=== PATIENT | male | born 1980 ===

== ENCOUNTER 2016-07-08 23:39 | Emergency (ER) | payer MEDICAID, OTHER ==
[2016-07-09] MEDS ORDERED: Sodium Chloride 0.9% 10 ML Syringe FLUSH PRN (00:16)
--- NOTE | 2016-07-09 00:28 | EDM.PDOC ---
ED HPI GENERAL MEDICAL PROBLEM - General Chief Complaint: Behavioral/Psych Stated Complaint: Agitation, N/V, side effects from smoking weed Time Seen by Provider: 07/08/16 23:40 Source of Information: Reports: Patient, Family, RN, RN Notes Reviewed History Limitations: Reports: No Limitations - History of Present Illness INITIAL COMMENTS - FREE TEXT/NARRATIVE: Patient presents to the emergency room at [facility] with concerns of contaminated marijuana. The patient states that earlier this evening he was at [employer] in [place] picking up supplies for work. The patient states that he bought a "bag of bleed from a [place]ese." The patient states when he got home this evening, he did smoke marijuana and also drink some alcohol. The patient states after smoking the marijuana she started having uncontrolled shaking, anxiety, hyperactivity, and paranoia. The patient is here to be evaluated for contaminated or "laced" marijuana. The patient states that "I normally do not smoked marijuana." The patient also states "I never drink alcohol." Onset Date: 07/08/16 Onset Time: 22:30 ED ROS GENERAL - Review of Systems Review Of Systems: See Below Constitutional: Reports: Diaphoresis. Denies: Fever, Chills, Weakness Respiratory: Denies: Shortness of Breath, Cough Cardiovascular: Denies: Chest Pain, Palpitations GI/Abdominal: Denies: Abdominal Pain, Diarrhea, Nausea, Vomiting Skin: Reports: Diaphoresis Neurological: Reports: Tremors. Denies: Dizziness, Headache, Numbness, Paresthesia, Tingling Psychiatric: Reports: Agitation, Anxiety ED EXAM, BEHAVIORAL HEALTH - Physical Exam Exam: See Below Exam Limited By: No Limitations General Appearance: Alert, Anxious, Thin. No: No Apparent Distress Eye Exam: Bilateral Eye: EOMI, Normal Inspection, PERRL Respiratory/Chest: No Respiratory Distress, Lungs Clear, Normal Breath Sounds Cardiovascular: Normal Peripheral Pulses, No Murmur, Tachycardia GI/Abdominal: Normal Bowel Sounds, Soft, Non-Tender Neurological: Alert, Oriented x 3 Psychiatric: Alert, Restless, Agitated, Phobic Skin Exam: Warm, Dry, Intact, Normal color, No rash EKG INTERPRETATION EKG Date: 07/08/16 Time: 23:57 Rhythm: NSR Rate (beats/min): 93 [place]: LAD-left axis deviation P-wave: present QRS: RBBB ST-T: normal QT: normal ME/PQ Interval: 0.15 Comparison: NA - no prior EKG EKG Interpretation Comments: Sinus Rhythm Marked Left Monroe deviation (QRS Monroe < -30) Incomplete RBBB (90+ms QRS duration, terminal R in V1/V2, 40+ ms S in I/aVL/V4/ V5/V6) Moderate ST depression (0.05+ mV ST depression) COURSE, BEHAVIORAL HEALTH COMP - Course Orders, Labs, Meds: Active Orders 24 hr Category Date Time Status EKG 12 Lead [EKG Documentation Completion] [RC] STAT Care 07/09/16 00:15 Active CARBOXY-THC BY GC/MS Stat Lab 07/09/16 00:20 Received Sodium Chloride 0.9% [Normal Saline] 1,000 ml Med 07/09/16 00:30 Active IV ASDIRECTED Sodium Chloride 0.9% [Saline Flush] Med 07/09/16 00:16 Active 10 ml FLUSH ASDIRECTED PRN Peripheral IV Insertion Adult [OM.PC] Routine Oth 07/09/16 00:16 Ordered Medication Orders Sodium Chloride (Normal Saline) 1,000 mls @ 999 mls/hr IV ASDIRECTED ARTEM Sodium Chloride (Saline Flush) 10 ml FLUSH ASDIRECTED PRN PRN Reason: Keep Vein Open Laboratory Tests 07/09/16 07/09/16 07/09/16 Range/Units 00:20 00:20 00:24 WBC 4.3 (4.0-10.0) x10^3/uL RBC 3.86 L (4.5-6.0) x10^6/uL Hgb 10.7 L (14.0-18.0) g/dL Hct 31.8 L (40.0-52.0) % MCV 82.4 (78.0-93.0) fL MCH 27.7 (26.0-32.0) pg MCHC 33.6 (32.0-36.0) g/dL RDW Coeff of Shaan 12.2 (10.0-15.0) % Plt Count 246 (130-400) x10^3/uL Neut % (Auto) 59.0 (50.0-80.0) % Lymph % (Auto) 27.8 (25.0-50.0) % [place] % (Auto) 11.8 H (2.0-11.0) % Eos % (Auto) 0.9 (0.0-4.0) % Baso % (Auto) 0.5 (0.2-1.2) % Sodium (136-145) mmol/L Potassium (3.5-5.1) mmol/L Chloride (98-107) mmol/L Carbon Dioxide (21-32) mmol/L BUN (7-18) mg/dL Creatinine (0.70-1.30) mg/dL Est Cr Clr Drug Dosing Estimated GFR (MDRD) Glucose (74-106) mg/dL Calcium (8.5-10.1) mg/dL Urine Color Dark yellow H (YELLOW) Urine Appearance Slightly cloudy H (CLEAR) Urine pH 6.0 (5.0-8.0) Ur Specific [place] >=1.030 Urine Protein 100 H (NEGATIVE) mg/dL Urine Glucose (UA) Negative (NEGATIVE) mg/dL Urine Ketones 15 H (NEGATIVE) mg/dL Urine Occult Blood Negative (NEGATIVE) Urine Nitrite Negative (NEGATIVE) Urine Bilirubin Small H (NEGATIVE) Urine Urobilinogen 1.0 (0.2) EU/dL Ur Leukocyte Esterase Negative (NEGATIVE) Urine RBC 0-5 (NOT SEEN) /HPF Urine WBC 0-5 (NOT SEEN) /HPF Ur Squamous Epith Cells Rare (NEGATIVE) /HPF Urine Bacteria Not seen (NEGATIVE) /HPF Hyaline Casts Rare H (NEGATIVE) /HPF Granular Casts Few H (NEGATIVE) /HPF Urine Mucus Many H (NEGATIVE) /LPF Urine Opiates Screen Negative (NEAGTIVE) Ur Buprenorphine Scrn Negative (NEGATIVE) Ur Oxycodone Screen Negative (NEGATIVE) Urine Methadone Screen Negative (NEGATIVE) Ur Barbiturates Screen Negative (NEGATIVE) Ur Tricyclics Screen Negative (NEGATIVE) Ur Amphetamine Screen Negative (NEGATIVE) U Methamphetamines Scrn Negative (NEGATIVE) Urine MDMA Screen Negative (NEGATIVE) U Benzodiazepines Scrn Negative (NEGATIVE) U Cocaine Metab Screen Negative (NEGATIVE) U Marijuana (THC) Screen Positive H (NEGATIVE) Ethyl Alcohol (0-3) mg/dL 07/09/17 Range/Units 00:24 WBC (4.0-10.0) x10^3/uL RBC (4.5-6.0) x10^6/uL Hgb (14.0-18.0) g/dL Hct (40.0-52.0) % MCV (78.0-93.0) fL MCH (26.0-32.0) pg MCHC (32.0-36.0) g/dL RDW Coeff of Shaan (10.0-15.0) % Plt Count (130-400) x10^3/uL Neut % (Auto) (50.0-80.0) % Lymph % (Auto) (25.0-50.0) % [place] % (Auto) (2.0-11.0) % Eos % (Auto) (0.0-4.0) % Baso % (Auto) (0.2-1.2) % Sodium 144 (136-145) mmol/L Potassium 3.3 L (3.5-5.1) mmol/L Chloride 109 H (98-107) mmol/L Carbon Dioxide 27 (21-32) mmol/L BUN 13 (7-18) mg/dL Creatinine 1.1 (0.70-1.30) mg/dL Est Cr Clr Drug Dosing TNP Estimated GFR (MDRD) > 60 Glucose 86 (74-106) mg/dL Calcium 8.1 L (8.5-10.1) mg/dL Urine Color (YELLOW) Urine Appearance (CLEAR) Urine pH (5.0-8.0) Ur Specific [place] Urine Protein (NEGATIVE) mg/dL Urine Glucose (UA) (NEGATIVE) mg/dL Urine Ketones (NEGATIVE) mg/dL Urine Occult Blood (NEGATIVE) Urine Nitrite (NEGATIVE) Urine Bilirubin (NEGATIVE) Urine Urobilinogen (0.2) EU/dL Ur Leukocyte Esterase (NEGATIVE) Urine RBC (NOT SEEN) /HPF Urine WBC (NOT SEEN) /HPF Ur Squamous Epith Cells (NEGATIVE) /HPF Urine Bacteria (NEGATIVE) /HPF Hyaline Casts (NEGATIVE) /HPF Granular Casts (NEGATIVE) /HPF Urine Mucus (NEGATIVE) /LPF Urine Opiates Screen (NEAGTIVE) Ur Buprenorphine Scrn (NEGATIVE) Ur Oxycodone Screen (NEGATIVE) Urine Methadone Screen (NEGATIVE) Ur Barbiturates Screen (NEGATIVE) Ur Tricyclics Screen (NEGATIVE) Ur Amphetamine Screen (NEGATIVE) U Methamphetamines Scrn (NEGATIVE) Urine MDMA Screen (NEGATIVE) U Benzodiazepines Scrn (NEGATIVE) U Cocaine Metab Screen (NEGATIVE) U Marijuana (THC) Screen (NEGATIVE) Ethyl Alcohol 21 H (0-3) mg/dL Medications Generic Name Dose Route Start Last Admin Trade Name Frebrenna PRN Reason Stop Dose Admin Sodium Chloride 1,000 mls @ 999 mls/hr 07/09/16 00:30 Normal Saline IV ASDIRECTED ARTEM Sodium Chloride 10 ml 07/09/16 00:16 Saline Flush FLUSH ASDIRECTED PRN Keep Vein Open Discontinued Medications Generic Name Dose Route Start Last Admin Trade Name Wen PRN Reason Stop Dose Admin Chlorpromazine HCl 25 mg/ 51 mls @ 100 mls/hr 07/09/16 00:28 Sodium Chloride IV 07/09/16 00:58 ONETIME ONE Departure - Departure Time of Disposition: 01:13 Disposition: Home, Self-Care 01 Condition: good Clinical Impression: Marijuana use, Alcohol use, Anxiety - Discharge Information Forms: ED Department Discharge Additional Instructions: 1. Stay well hydrated and rest 2. Please avoid any illegal drug use and alcohol use 3. Avoid any cigarette smoking 4. Your urine test positive for Marijuana 5. Blood test positive for alcohol 6. See your Primary as symptoms warrant - Problem List Review Problem List Initiated/Reviewed/Updated: Yes - My Orders Last 24 Hours: My Active Orders 07/09/16 00:15 EKG 12 Lead [EKG Documentation Completion] [RC] STAT 07/09/16 00:16 Sodium Chloride 0.9% [Saline Flush] 10 ml FLUSH ASDIRECTED PRN Peripheral IV Insertion Adult [OM.PC] Routine 07/09/16 00:20 CARBOXY-THC BY GC/MS Stat 07/09/16 00:30 Sodium Chloride 0.9% [Normal Saline] 1,000 ml IV ASDIRECTED - Assessment/Plan Last 24 Hours: My Active Orders 07/09/16 00:15 EKG 12 Lead [EKG Documentation Completion] [RC] STAT 07/09/16 00:16 Sodium Chloride 0.9% [Saline Flush] 10 ml FLUSH ASDIRECTED PRN Peripheral IV Insertion Adult [OM.PC] Routine 07/09/16 00:20 CARBOXY-THC BY GC/MS Stat 07/09/16 00:30 Sodium Chloride 0.9% [Normal Saline] 1,000 ml IV ASDIRECTED
[2016-07-09] MEDS ORDERED: Sodium Chloride 0.9% 1,000 ML IV SCH ×2 (00:30→00:50)
[2016-07-09 00:46] LABS: CHLORIDE,CL 109 mmol/L (98-107); SODIUM,NA 144 mmol/L (136-145)
[2016-07-09 02:17] VITALS: BP 138/73
== END 2016-07-09 04:30 | disposition home or self-care (01) ==
LOC: VM.ED 23:39
DX: F41.9 Anxiety disorder, unspecified (principal); F15.90 Other stimulant use, unspecified, uncomplicated; Z72.89 Other problems related to lifestyle
CPT/HCPCS: 36415; 80048; 80305; 80349; 81001; 85025; 93005; 96361; 96365; 99285; G0480; J3230; J7030; J7050; 99284-GF